=== PATIENT | male | born 1955 | race Caucasian/White ===

== ENCOUNTER 2018-12-03 11:56 | Day surgery (SDC) | payer BC ==
[2018-12-03] VITALS (8 sets, daily range): BP systolic 32–148; BP diastolic 59–91; PULSE 49–63; TEMP 97.5–97.8
[~2018-12-03] VITALS: Ht 177.8 cm; Wt 77.5 kg
[2018-12-03] MEDS ORDERED: ALEVE 220MG220 MG PO (13:16)
[2018-12-03] MEDS ORDERED: PRAVACHOL 40MG40 MG PO (13:30)
--- NOTE | 2018-12-03 15:35 | NUR ---
PATIENT ARRIVED TO ROOM 322-2 VIA BED POST-OP. PATIENT SETTELED INTO ROOM. PATIENT A&O. VSS. PRESENT AT THE BEDSIDE. PATIENT DENIES PAIN. NO OTHER NEEDS AT THIS TIME.
--- NOTE | 2018-12-03 15:39 | NUR ---
Pt seen in PACU for bladder installation of Mitomycin as per order. Mcgill catheter drained and clamped. Mitomycin verified with Pacu nurse Kecia and instilled into bladder @ 1445 without difficulty following protocal. Chemotherapy precautions followed. Pt to transfer to room 322-2 and to have mcgill catheter removed after mitomycin drained per Dr Maza verbal order. Plan for pt to discharge post void.
--- NOTE | 2018-12-03 16:15 | NUR ---
Pt and in room 322-2. Mitomyucin precautions and information provided and verbally reviewed. Pt turning every 15 minutes as instructed. Awake and alert and denies concerns at this time.
--- NOTE | 2018-12-03 17:05 | NUR ---
Pt has completed [address] Maza in to see pt and his briefly and then mcgill drained. Urine is clear purple color without clots. 700ml drained and then mcgill dc'd with jonathan-care completed. Stat lock removed. Chemotherapy precautions followed Precautions reviewed and report to primary nurse Luna LEGGETT.
--- NOTE | 2018-12-03 18:30 | NUR ---
PATIENT POST-OP VITALS STABLE. PATIENT EATING, DRINKING AND VOIDING WITHOUT ANY DIFFICULTIES, PAIN, NAUSEA OR VOMITING. PATIENT'S LEFT HAND INT DISCONTINUED PER PENDING DISCHARGE. TIP INTACT. PATIENT TOLERATED WELL. DISCHARGE INSTRUCTIONS REVIEWED WITH PATIENT AND . ALL QUESTIONS ANSWERED. PATIENT PERSONAL BELONGINGS GATHERED. PATIENT AMBULATED TO PERSONAL VEHICLE WITH SURGICAL STAFF. PATIENT DISCHARGED.
== END 2018-12-03 18:30 | disposition home or self-care (01) ==
LOC: SDCO 11:56 → SURG 15:35 → SDCO 18:30
DX: C67.6 Malignant neoplasm of ureteric orifice (principal); N40.1 Benign prostatic hyperplasia with lower urinary tract symptoms; R35.0 Frequency of micturition; R35.1 Nocturia; R39.15 Urgency of urination; R39.12 Poor urinary stream; E78.5 Hyperlipidemia, unspecified; Z82.49 Family history of ischemic heart disease and other diseases of the circulatory system; Z80.1 Family history of malignant neoplasm of trachea, bronchus and lung; Z80.8 Family history of malignant neoplasm of other organs or systems; Z80.7 Family history of other malignant neoplasms of lymphoid, hematopoietic and related tissues
CPT/HCPCS: OP; C1769; C2617; J0690; J1100; J2405; J2704; J3010; J7120; J9280; Q9967